=== PATIENT | female | born 1985 | race Caucasian/White ===

== ENCOUNTER → 2016-12-10 | Outpatient (CLI) | payer BC ==
--- NOTE | 2016-12-11 13:47 | US ---
EXAM DESCRIPTION: Breast,Left ultrasound. CLINICAL HISTORY: 31 yearsFemale6 MONTH FOLLOW UP. Patient has had additional autologous fat injections bilateral breasts since the prior study. COMPARISON: Digital 2-D diagnostic mammogram left breast 11/29/2015. TECHNIQUE: Transcutaneous scanning of the upper inner quadrant of the left breast utilizing two-dimensional and Doppler modes. Scanning performed by the wire weaver helper and Dr. Linares. FINDINGS: An oval-shaped isoechoic structure with hypoechoic rim is visualized at the 10:00 position, 2 cm from the nipple, where the patient palpates a mass. This mass measures 1.7 cm in diameter and contains two anechoic or hypoechoic round structures with well-defined tejada and mixed exterior features. This is similar appearance to a lesion in the similar location of the left breast on the prior study. Probably related to fat necrosis. No vascularity is noted. The largest hypoechoic region is slightly larger than the prior study, but the overall soft tissue object is stable in size. Again noted are cystic structures in the adjacent parenchyma. No definite focal mass or large calcifications.. IMPRESSION: BI-RADS 3: PROBABLY BENIGN FINDING - Short Interval Follow-Up Suggested FOLLOW-UP: Short-interval (6-month) follow-up left breast ultrasound. The findings and the follow-up plan were reviewed in person with the patient after the examination. Written communication explaining the findings and follow-up, will be mailed to the patient and referring health care provider. Electronically signed by: Fabian Linares MD 12/11/2016 1:46 PM CDT Workstation: [id number]
== END ==
LOC: MAMMO 13:53
PROVIDERS: ATTEND Obstetrics & Gynecology
DX: R92.8 Other abnormal and inconclusive findings on diagnostic imaging of breast (principal)